=== PATIENT | female | born 1970 | race Caucasian/White ===

== ENCOUNTER 2020-10-13 09:15 | Outpatient (CLI) | payer SELFPAY ==
[2020-10-16 16:13] LABS: COVID-19 RT-PCR Result Positive (Negative)
== END 2020-10-13 09:35 ==
PROVIDERS: PCP Family Medicine; Visit Provider Family Medicine
DX: Z20.828 Contact with and (suspected) exposure to other viral communicable diseases (principal)
CPT/HCPCS: U0003